=== PATIENT | male | born 2000 | race African-American/Black ===

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

== ENCOUNTER 2020-08-21 09:42 | Emergency (ER) | payer OTHER ==
[2020-08-21 09:55] VITALS: BP 160/90; PULSE 96; TEMP 98.7; BMI 43.7
--- OUTSIDE RECORDS SUMMARY | 2020-08-21 10:09 | XMS ---
:2000 Author Organization [facility] Support Name Relationship Address Phone FRANCHESCA, STUDENT Unavailable Unavailable Unavailable FRANCHESCA Unavailable Unavailable Unavailable SMITA GOLDEN GRANDMOTHER [address] [place] [address] Re-disclosure Warning The records that you are about to access may contain information from federally- assisted alcohol or drug abuse programs. If such information is present, then the following federally mandated warning applies: This information has been disclosed to you from records protected by federal confidentiality rules (42 CFR part 2). The federal rules prohibit you from making any further disclosure of this information unless further disclosure is expressly permitted by the written consent of the person to whom it pertains or as otherwise permitted by 42 CFR part 2. A general authorization for the release of medical or other information is NOT sufficient for this purpose. The Federal rules restrict any use of the information to criminally investigate or prosecute any alcohol or drug abuse patient.The records that you are about to access may contain highly sensitive health information, the redisclosure of which is protected by Article 27-F of the [facility] Public Health law. If you continue you may haveaccess to information: Regarding HIV / AIDS; Provided by facilities licensed or operated by the [facility] Office of Mental Health; or Provided by the [facility] Office for People With Developmental Disabilities. If such information is present, then the following [facility] mandated warning applies: This information has been disclosed to you from confidential records which are protected by state law. State law prohibits you from making any further disclosure of this information without the specific written consent of the person to whom it pertains, or as otherwise permitted by law. Any unauthorized further disclosure in violation of state law may result in a fine or correction sentence or both. A general authorization for the release of medical or other information is NOT sufficient authorization for further disclosure. Insurance Providers Payer name Policy type Policy ID Covered Covered green party's Policy P jeff / Coverage green party ID relationship to [facility] type [place] [id number]
--- NOTE | 2020-08-21 10:49 | PDOC ---
History of Present Illness - General Chief Complaint: Ear Problem Stated Complaint: L/EAR PROBLEM Time Seen by Provider: 08/21/20 10:00 History Source: Patient Exam Limitations: No Limitations - History of Present Illness Initial Comments: 08/21/20 10:45 19-year-old male presents ED with complaints of left ear pain for the past 2 days. Patient states no change in hearing but states drainage noted this morning on pillow. Patient describes the drainage as a whitish discharge. Patient denies difficulty swallowing, headache, or fever. Patient does state use ear buds in his ear on a daily basis. Is this a multiple visit Asthma Patient?: No Timing/Duration: other (2 days) Severity: mild Associated Symptoms: reports: other Past History - Travel History Traveled outside of the country in the last 30 days: No Close contact w/someone who was outside of country & ill: No - Medical History Allergies/Adverse Reactions: Allergies Allergy/AdvReac Type Severity Reaction Status Date / Time No Known Allergies Allergy Verified 08/21/20 09:53 Home Medications: Ambulatory Orders Ibuprofen 800 mg PO TID PRN #20 tablet 06/12/18 Methocarbamol [Robaxin -] 500 mg PO BID PRN #14 tablet 06/12/18 Ibuprofen 600 mg PO Q6H PRN #30 tablet 06/23/18 Amoxicillin - [Amoxicillin 500mg Capsule -] 500 mg PO BID #14 capsule 08/21/20 Ciprofloxacin HCl/Dexameth [Ciprodex Otic Suspension] 4 drop OS BID #1 bottle 08/21/20 Cancer: No Cardiac Disorders: No CVA: No COPD: No DVT: No Dementia: No - Surgical History GI Surgery: No Lung Surgery: No - Immunization History Immunization Up to Date: Yes - Psycho-Social/Smoking History Patient Lives Alone: No Lives with/in: parents Smoking Status: No Smoking History: Never smoked Have you smoked in the past 12 months: No Number of Cigarettes Smoked Daily: 0 - Substance Abuse Hx (Audit-C & DAST Scrn) How often the patient has a drink containing alcohol: Never Score: In Men: 4 or > Positive; In Women: 3 or > Positive: 0 Screen Result (Pos requires Nsg. Audit-10AR): Negative In the last yr the pt used illegal drug/Rx for NonMed reason: No Score: Yes response is considered Positive: 0 Screen Result (Positive result requires Nsg. DAST-10): Negative Review of Systems - Review of Systems Able to Perform ROS?: Yes Constitutional: No: Symptoms Reported HEENTM: Yes: Ear Pain, Ear Discharge Respiratory: No: Symptoms reported ABD/GI: No: Symptoms Reported Integumentary: No: Symptoms Reported Neurological: No: Symptoms reported *Physical Exam - Vital Signs Last Vital Signs Temp Pulse Resp BP Pulse Ox 98.7 F 96 H 18 160/90 100 08/21/20 09:54 08/21/20 09:54 08/21/20 09:54 08/21/20 09:54 08/21/20 09:54 - Physical Exam General Appearance: Yes: Nourished, Appropriately Dressed. No: Apparent Distress HEENT: positive: Pharynx Normal, Other ( Otitis externa noted along with otitis media). negative: Pale Conjunctivae Neck: positive: Supple Respiratory/Chest: positive: Lungs Clear, Normal Breath Sounds. negative: Respiratory Distress, Accessory Muscle Use Extremity: positive: Normal Inspection Integumentary: positive: Normal Color Neurologic: positive: Motor Strength 5/5 (ambulatory) Medical Decision Making - Medical Decision Making 08/21/20 10:48 Chief complaint: Left ear pain x2 days. No change in hearing Exam: Patient with otitis externa/media without perforated TM. Plan: Drops and antibiotic tablets ordered. Patient given supportive care instructions. Discharge - Discharge Information Problems reviewed: Yes Clinical Impression/Diagnosis: Otitis externa, Otitis media Condition: Good Disposition: HOME - Additional Discharge Information Prescriptions: Amoxicillin - [Amoxicillin 500mg Capsule -] 500 mg PO BID #14 capsule Ciprofloxacin HCl/Dexameth [Ciprodex Otic Suspension] 4 drop OS BID #1 bottle - Follow up/Referral - Patient Discharge Instructions Patient Printed Discharge Instructions: DI for Otitis Externa, Middle Ear Infection Additional Instructions: Please take medications as prescribed. Do not place anything into your ear including your ear buds keep area clean and dry for the next 5 days, protecting it against even water from the shower/bath - Post Discharge Activity
== END 2020-08-21 10:55 | disposition home or self-care (01) ==
LOC: JERFT 09:42
DX: H60.92 Unspecified otitis externa, left ear (principal); H65.02 Acute serous otitis media, left ear
CPT/HCPCS: 99282-25